=== PATIENT | male | born 1980 | race African-American/Black ===

== ENCOUNTER 2017-02-09 13:32 | Emergency (ER) | payer SELFPAY ==
[2017-02-09] MEDS ORDERED: Lorazepam 2 MG/ML VIAL ONE (14:04)
== END 2017-02-09 14:27 ==
LOC: NAV ERS 13:32
DX: F16.10 Hallucinogen abuse, uncomplicated (principal)
CPT/HCPCS: 93005; 96372; J2060

== ENCOUNTER 2022-07-22 02:31 | Emergency (ER) | payer SELFPAY ==
[2022-07-22] MEDS ORDERED: Boostrix 0.5 ML (Tdap) VIAL (>/=7 yrs of age) ONE (02:38)
[2022-07-22] MEDS ORDERED: Lidocaine 1% w/Epinephrine 1:100K 20 ML VIAL ONE (02:43)
[2022-07-22] MEDS ORDERED: Bacitracin 1 PK ONE (02:44)
[2022-07-22] MEDS ORDERED: CEFAZOLIN 1 GM VIAL ONE (02:46)
[2022-07-22] MEDS ORDERED: Sodium Chloride 0.9% 100 ML ONE (02:46)
[2022-07-22 03:03] LABS: #Basophils 0.1 thou/uL (0.0-0.2); #Eosinphils 0.1 thou/uL (0.0-0.7); #Lymphocytes 1.8 thou/uL (1.20-3.40); #Neutrophils 2.9 thou/uL (1.40-6.50); %Basophils 1.1 % (0.0-1.0); %Eosinophils 2.1 % (0.0-10.0); %Lymphocytes 31.3 % (21.0-51.0); %Monocytes 16.2 % (0.0-10.0); %Neutrophils 49.2 % (42.0-75.0); Hemoglobin 13.8 g/dL (14.0-18.0); Mean Corpuscular HGB CONC 31.4 g/dL (32.0-36.0); Mean Corpuscular Hemoglobin 29.8 pg (27.0-31.0); Mean Corpuscular Volume 95.1 fl (78.0-98.0); Platelet Count 220 10x3/uL (130-400); RBC Distribution Width 12.7 % (11.5-14.5); Red Blood Cell (RBC) Count 4.64 mill/uL (4.70-6.10); White Blood Cell (WBC) Count 5.9 10x3/uL (4.8-10.8)
[2022-07-22 04:09] LABS: Anion Gap 15 mmol/L (10-20); BUN (Urea Nitrogen) 12 mg/dL (8.9-20.6); Calc. Creatinine Clearance 0 mL/min (70-130); Calcium 8.7 mg/dL (7.8-10.44); Carbon Dioxide 23 mmol/L (22-29); Chloride 108 mmol/L (98-107); Estimated GFR 56; Glucose 114 mg/dL (70-105); Potassium 3.5 mmol/L (3.5-5.1); Sodium 142 mmol/L (136-145)
== END 2022-07-22 05:25 | disposition federal hospital, planned readmission (88) ==
LOC: NAV ERS 02:31
DX: S02.40EA Zygomatic fracture, right side, initial encounter for closed fracture (principal); S41.111A Laceration without foreign body of right upper arm, initial encounter; I10 Essential (primary) hypertension; Z21 Asymptomatic human immunodeficiency virus [HIV] infection status; Y04.0XXA Assault by unarmed brawl or fight, initial encounter
CPT/HCPCS: 12034; 36415; 70450; 72125; 80048; 80307; 83880; 85025; 90471; 90715; 96365; J0690